=== PATIENT | female | born 1990 ===

== ENCOUNTER 2016-08-14 02:07 | Emergency (ER) | payer SELFPAY ==
[~2016-08-14] VITALS: Ht 172.7 cm; Wt 58.0 kg
[2016-08-14 02:16] VITALS: Ht 172.7 cm; Wt 58.0 kg
== END 2016-08-14 04:16 | disposition left against medical advice (07) ==
LOC: E/R 02:07
DX: Z53.21 Procedure and treatment not carried out due to patient leaving prior to being seen by health care provider (principal)